=== PATIENT | male | born 1950 | race Caucasian/White ===

== ENCOUNTER 2019-01-12 21:42 | Emergency (ER) | payer MEDICARE ==
--- NOTE | 2019-01-12 21:53 | ER Report ---
History and Physical Time Seen By MD: 21:50 Hx. of Stated Complaint: PATIENT HAS HAD A PRESISTANT COUGH FOR THE LAST 3WEEKS, PATIENT STATES IT HAS PROGRESSIVELY GOTTEN WORSE, PATIENT HAVING SHORTNESS OF BREATH AND A LOT OF SWELLING IN HIS LEGS AND ANKLES. HPI/ROS CHIEF COMPLAINT: leg swelling and shortness of breath HISTORY OF PRESENT ILLNESS: This is a 68 year old male. He is having new leg swelling and shortness of breath. Has a history of GA and stents in the past. Has type 2 diabetes, diet and oral medications. No recent or current chest pain. No fevers. Has a mild cough with this as well, nonproductive. No nausea or vomiting. Has history of some kidney problems in the past from medicines, but improved with medication adjustments. Has history of heart murmur from when he was a child, no problems with this. No history of heart failure in the past. No recent problems with bowels or urination. No musculoskeletal pain. Has noted some low blood sugars recently. Allergies: Coded Allergies: No Known Drug Allergies (Unverified , 01/12/19) Home Meds Active Scripts Potassium Chloride (KLOR-CON M20) 20 Meq Tab.er.prt, 20 MEQ PO QDAY, #30 TAB 0 Refills Prov:ASH MASCORRO MD 01/13/19 Furosemide (FUROSEMIDE) 20 Mg Tablet, 1 TAB PO QDAY, #30 TAB 0 Refills Prov:ASH MASCORRO MD 01/13/19 Reported Medications Amlodipine Besylate (AMLODIPINE BESYLATE) 5 Mg Tablet, 1 TAB PO QDAY, TAB 01/12/19 Rosuvastatin Calcium (CRESTOR) 10 Mg Tab, 10 MG PO QDAY, #5 TAB 01/12/19 Nitroglycerin (NITROGLYCERIN) 0.4 Mg Tab.subl, 0.4 MG SL Q5MIN PRN for CHEST PAIN 01/12/19 Pioglitazone Hcl (PIOGLITAZONE HCL) 30 Mg Tablet, 30 MG PO QDAY 01/12/19 Trazodone Hcl (TRAZODONE HCL) 50 Mg Tablet, 1-2 TAB PO QHS PRN for INSOMNIA 01/12/19 Metformin Hcl (METFORMIN HCL) 1,000 Mg Tablet, 1 TAB PO BID, TAB 01/12/19 Losartan/Hydrochlorothiazide (LOSARTAN-HCTZ 100-25 MG TAB) 1 Each Tablet, 1 EACH PO QDAY 01/12/19 Glipizide (GLIPIZIDE) 10 Mg Tablet, 10 MG PO BID 01/12/19 Metoprolol Tartrate (METOPROLOL TARTRATE) 25 Mg Tablet, 2 TAB PO BID, TAB 01/12/19 Constitutional Vital Sign - Last 24 Hours 01/12/19 01/12/19 01/12/19 01/12/19 21:48 21:57 22:00 22:12 Temp 98.1 Pulse 68 65 63 Resp 20 13 26 B/P (MAP) 137/78 140/75 (96) Pulse Ox 93 96 93 O2 Delivery Room Air 01/12/19 01/12/19 01/12/19 01/12/19 22:28 22:42 22:47 23:00 Pulse 65 40 Resp 23 21 B/P (MAP) 126/75 (92) 134/80 (98) Pulse Ox 90 91 01/12/19 01/12/19 01/12/19 01/12/19 23:02 23:17 23:30 23:32 Pulse 66 54 65 Resp 29 22 23 B/P (MAP) 114/66 (82) Pulse Ox 93 90 90 01/12/19 01/13/19 01/13/19 01/13/19 23:47 00:00 00:05 00:20 Pulse 47 66 63 Resp 21 23 22 B/P (MAP) 133/66 (88) Pulse Ox 91 91 90 01/13/19 01/13/19 01/13/19 01/13/19 00:25 00:30 00:40 00:55 Pulse 67 63 58 Resp 22 25 23 B/P (MAP) 126/88 (101) Pulse Ox 90 87 85 01/13/19 01/13/19 01/13/19 01/13/19 01:00 01:10 01:15 01:30 Pulse 58 58 65 Resp 23 22 B/P (MAP) 131/81 (98) ???/??? (1665) Pulse Ox 90 89 01/13/19 01/13/19 01/13/19 01/13/19 01:45 01:50 02:00 02:05 Pulse 60 60 60 Resp 16 15 17 B/P (MAP) 139/81 (100) Pulse Ox 90 91 87 Physical Exam General Appearance: The patient is alert. No acute distress. Non-toxic in appearance. Eyes: Pupils are equal, round. No pallor, injection or icterus. ENT: Mucous membranes are moist. Neck: Supple and non tender. No carotid bruits. Respiratory: Lungs are clear to auscultation. There are no retractions or accessory muscle use. Cardiovascular: Regular rate and rhythm. He does have a holosystolic murmur, harsh sounding. Normal capillary refill. 2+ bilateral ankle edema extending to trace upper tibia. Gastrointestinal: Abdomen is soft and non tender. Nondistended. Normal active bowel sounds. Neurological: Alert and oriented x3. No focal neurologic deficits Skin: Warm and dry. No rashes. Musculoskeletal: Extremities are nontender. DIFFERENTIAL DIAGNOSIS: After history and physical exam, differential diagnosis was considered for new-onset edema and shortness of breath, with a murmur that he says he has had since a child but is harsh sounding. We'll do workup looking for acute coronary syndrome, heart failure, other causes of shortness of breath. Medical Decision Making Data Points Result Diagram: 01/12/19215401/12/192154 Laboratory Hematology Test 01/12/19 21:55 White Blood Count 8.9 k/uL (4.5-11.0) Red Blood Count 4.57 M/uL (4.00-5.60) Hemoglobin 14.1 g/dL (14.0-18.0) Hematocrit 40.9 % (42.0-52.0) L Mean Corpuscular Volume 89.6 fL (80.0-96.0) Mean Corpuscular Hemoglobin 30.9 pg (26.0-33.0) Mean Corpuscular Hemoglobin Concent 34.4 g/dL (32.0-36.0) Red Cell Distribution Width 13.9 % (11.5-14.5) Platelet Count 187 K/uL (150-450) Mean Platelet Volume 7.9 fL (7.2-11.1) Neutrophils (%) (Auto) 65.7 % (39.4-72.5) Lymphocytes (%) (Auto) 23.1 % (17.6-49.6) Monocytes (%) (Auto) 9.8 % (4.1-12.4) Eosinophils (%) (Auto) 0.9 % (0.4-6.7) Basophils (%) (Auto) 0.5 % (0.3-1.4) Nucleated RBC Relative Count (auto) 0.1 /100WBC Neutrophils # (Auto) 5.8 K/uL (2.0-7.4) Lymphocytes # (Auto) 2.1 K/uL (1.3-3.6) Monocytes # (Auto) 0.9 K/uL (0.3-1.0) Eosinophils # (Auto) 0.1 K/uL (0.0-0.5) Basophils # (Auto) 0.0 K/uL (0.0-0.1) Nucleated RBC Absolute Count (auto) 0.01 K/uL Chemistry Test 01/12/19 21:55 Sodium Level 138 mmol/L (137-145) Potassium Level 4.0 mmol/L (3.5-5.0) Chloride Level 102 mmol/L (98-107) Carbon Dioxide Level 24 mmol/L (22-30) Blood Urea Nitrogen 20 mg/dl (9-21) Creatinine 1.70 mg/dl (0.66-1.25) Glomerular Filtration Rate Calc 40.4 Random Glucose 129 mg/dl (75-110) Calcium Level 9.4 mg/dl (8.4-10.2) Total Bilirubin 0.9 mg/dl (0.2-1.3) Aspartate Amino Transf (AST/SGOT) 26 U/L (0-35) Alanine Aminotransferase (ALT/SGPT) 35 U/L (0-56) Alkaline Phosphatase 75 U/L (0-126) Troponin I < 0.012 ng/ml B-Type Natriuretic Peptide 100 pg/ml (0-100) Total Protein 7.3 g/dl (6.3-8.2) Albumin 4.2 g/dl (3.5-5.0) Urinalysis Test 01/12/19 22:59 Urine Color Yellow Urine Clarity Clear Urine pH 7.0 pH (4.8-9.5) Urine Specific [place] 1.014 Urine Protein Negative mg/dL (NEGATIVE) Urine Glucose (UA) Negative mg/dL (NEGATIVE) Urine Ketones Negative mg/dL (NEGATIVE) Urine Blood Negative (NEGATIVE) Urine Nitrite Negative (NEGATIVE) Urine Bilirubin Negative (NEGATIVE) Urine Urobilinogen 2.0 mg/dL (0.2-1.9) Urine Leukocyte Esterase Negative (NEGATIVE) Urine RBC <1 /HPF (0-2/HPF) Urine WBC None /HPF (0-5/HPF) Urine Squamous Epithelial Cells None /LPF (</=FEW) Urine Bacteria Negative /HPF (NONE-FEW) Urine Mucus None /HPF (NONE-FEW) EKG/Imaging EKG Interpretation 12 lead EKG: Rhythm: Sinus rhythm with first-degree AV block, one PVC, rate 71 [place]: normal QRS: Low-voltage. Q waves in II, III, and F aVF consistent with old GA ST segments: No ST elevation or depression, no acute signs of ischemia Imaging Examination: CHEST PA LAT Comparison: None. History: edema, short of breath Findings: Cardiac and hilar contour size is within normal limits. No consolidation, nodule, or definite evidence of peribronchial inflammation. No pneumothorax, edema, or effusion. Visualized bowel gas pattern is within normal limits. Osseous structures are intact. IMPRESSION: No findings of acute cardiopulmonary disease. Report Dictated By: Alexander Longo MD at 01/12/2019 10:46 PM ED Course/Re-evaluation Clinical Indication for ER IV: IV Access ED Course Patient had an IV placed with labs obtained. Negative troponin, BNP, CBC. Patient did have an elevated creatinine at 1.70, unsure what his baseline is, he does report having had elevated creatinine with his doctor in the past. Because of his murmur and new edema and shortness of breath, did ask for an echocardio gram. Ultrasound was able to do that tonight but cardiology reading won't be done until tomorrow. Preliminary suggests a normal ejection fraction but does have aortic stenosis. The rest the valves appear to be normal. I reviewed all this with the patient. He is from out of town working here and [employer] for the next few months. We will start him on furosemide and potassium. I would like him to follow up with one of the local doctors who can coordinate his care with his doctor back home and recommend that he follow up within about one week's time for follow-up visit as well as repeat lab studies. Also discussed other nonmedication ways to address edema such as compression stockings or Roland wrap's, elevation of the feet, and limiting sodium intake. Decision to Disposition Date: Jan 13, 2019 Decision to Disposition Time: 02:03 Depart Departure Latest Vital Signs Vital Signs Date Time Temp Pulse Resp B/P (MAP) Pulse Ox O2 Delivery O2 Flow Rate FiO2 01/13/19 02:05 60 17 87 01/13/19 02:00 139/81 (100) 01/12/19 21:48 98.1 Room Air Impression: Primary Impression: Peripheral edema Condition: Improved Disposition: HOME OR SELF-CARE Referrals: MYLA ZAMAN MD New Scripts Potassium Chloride (KLOR-CON M20) 20 Meq Tab.er.prt 20 MEQ PO QDAY, #30 TAB 0 Refills Prov: ASH MASCORRO MD 01/13/19 Furosemide (FUROSEMIDE) 20 Mg Tablet 1 TAB PO QDAY, #30 TAB 0 Refills Prov: ASH MASCORRO MD 01/13/19 Patient Instructions: Edema (ED) Additional Instructions: Follow-up is needed to help determine the cause of the swelling in your legs. The Echo-cardiogram (ultrasound of the heart) was done tonight and will be read by cardiology tomorrow. In the meantime, we are going to start you on a diuretic called Furosemide (Lasix). Take furosemide 20mg once a day. This should make you urinate alot for several hours. If the 20mg tablet does not make you urinate like this, please increase to 40mg once a day (2 of the 20mg tablets). Take one of the Potassium tablets (Klor-con 20mEq) daily along with the furosemide. Please follow-up with one of our local physicians who can monitor progress with these medicines and re-check you lab tests to make sure kidney function and electrolytes are doing well. Call [facility] tomorrow to schedule with one of the doctors early next week. They can help coordinate care with your regular doctor back home. While at rest, keep legs elevated. Use compression stockings or ROLAND wraps to help with the leg swelling (called edema). Avoid excess salt in your diet. No other changes to medicines at this time. ASH MASCORRO MD Jan 12, 2019 21:53
[2019-01-12] MEDS ORDERED: METF-452 PO (22:06)
[2019-01-12] MEDS ORDERED: ROSU10TA PO (22:06)
[2019-01-12] MEDS ORDERED: GLIP-154 PO (22:06)
[2019-01-12] MEDS ORDERED: METO25TA93 PO (22:06)
[2019-01-12] MEDS ORDERED: TRAZ50TA52 PO (22:06)
[2019-01-12] MEDS ORDERED: AMLO-125 PO (22:06)
[2019-01-12] MEDS ORDERED: PIOG30TA71 PO (22:06)
[2019-01-12] MEDS ORDERED: LOSA-54 PO (22:06)
[2019-01-12] MEDS ORDERED: NITR0.4T3 SL (22:06)
[2019-01-12 22:16] LABS: PLATELET COUNT, AUTOMATED 187 K/uL (150-450)
--- NOTE | 2019-01-12 22:53 | EKG ---
FACILITY: [facility] [place] PATIENT NAME: MATEO ALDANA : [id number] MR: [id number] V: [id number] EXAM DATE: ORDERING PHYSICIAN: ASH MASCORRO TECHNOLOGIST: KONSTANTIN Test Reason : SOB Blood Pressure : / mmHG Vent. Rate : 071 BPM Atrial Rate : 071 BPM P-R Int : 312 ms QRS Dur : 108 ms QT Int : 388 ms P-R-T Axes : 012 257 023 degrees QTc Int : 421 ms Sinus rhythm with 1st degree AV block with occasional premature ventricular complexes Left axis Nonspecific interventricular conduction delay Q waves inferior, anterior leads consistent with possible previous infarct Abnormal ECG No previous ECGs available Confirmed by JOSÉ MIGUEL HERNANDEZ ([id number]) on 01/13/2019 5:56:12 AM Referred By: Confirmed By:JOSÉ MIGUEL HERNANDEZ
--- NOTE | 2019-01-12 23:06 | RADIOLOGY IMAGING REPORT ---
FACILITY: [facility] PATIENT NAME: Barron Moody : 1950 MR: [id number] V: [id number] EXAM DATE: ORDERING PHYSICIAN: ASH MASCORRO TECHNOLOGIST: Location: [facility] [place] Patient: Barron Moody : 1950 Visit/Account:[id number] Date of Sevice: 01/12/2019 Examination: CHEST PA LAT Comparison: None. History: edema, short of breath Findings: Cardiac and hilar contour size is within normal limits. No consolidation, nodule, or definite evidence of peribronchial inflammation. No pneumothorax, edema, or effusion. Visualized bowel gas pattern is within normal limits. Osseous structures are intact. IMPRESSION: No findings of acute cardiopulmonary disease. Report Dictated By: Alexander Longo MD at 01/12/2019 10:46 PM Report E-Signed By: Alexander Longo MD at 01/12/2019 10:57 PM [id number]
[2019-01-13 02:00] VITALS: BP 139/81
[2019-01-13] MEDS ORDERED: POTA20TA85 PO (02:07)
[2019-01-13] MEDS ORDERED: FURO-45 PO (02:07)
== END 2019-01-13 02:20 | disposition home or self-care (01) ==
LOC: ER 22:02
DX: R60.0 Localized edema (principal)
CPT/HCPCS: 71046; 81001; 82040; 82247; 82310; 82374; 82435; 82565; 82947; 83880; 84075; 84132; 84155; 84295; 84450; 84460; 84484; 84520; 85025; 93005; 93306; 99284